=== PATIENT | male | born 1970 | race Caucasian/White ===

== ENCOUNTER 2019-06-18 19:10 | Emergency (ER) | payer OTHER ==
[~2019-06-18] VITALS: Ht 185.4 cm; Wt 90.0 kg
[~2019-06-18 19:10] MED LIST: LORTAB 5/500 501 TAB PO; NO HOME MEDICATIONS; PENICILLIN V500 MG PO
[2019-06-18 19:17] VITALS: BP 151/94; TEMP 98.1
[2019-06-18] MEDS ORDERED: NORCO 325 MG-51 TAB PO (20:41)
[2019-06-18] MEDS ORDERED: CEPHALEXIN500 M1 PO (20:41)
[2019-06-18 21:05] VITALS: PULSE 85
== END 2019-06-18 21:07 | disposition home or self-care (01) ==
LOC: COL.ER 19:10
DX: S61.211A Laceration without foreign body of left index finger without damage to nail, initial encounter (principal); W27.8XXA Contact with other nonpowered hand tool, initial encounter; Y99.0 Civilian activity done for income or pay